=== PATIENT | male | born 1960 | race Caucasian/White ===

== ENCOUNTER 2020-07-27 09:32 | Inpatient (IN) | payer OTHER ==
[~2020-07-27] VITALS: Ht 177.8 cm; Wt 104.2 kg
--- NOTE | 2020-07-27 09:37 | NUR ---
PT BIB AMBULANCE [facility] FOR [facility]UD[facility] ONSET OF [place], CP RADIATING ACROSS CHEST TO BACK AND ARMS SINCE 10 PM LAST NIGHT. PT REPORTS PAIN A SQUEEZING PRESSURE. PT ON MONITOR AND EKG BEING DONE. PT DENIES CP NOW. PT HAD SERIAL TROPS DONE AT [facility] WITH SECOND AND THIRD TROP BEING POSITIVE.
--- NOTE | 2020-07-27 10:06 | NUR ---
REPORT TO ZAIDA Aguero RN.
--- NOTE | 2020-07-27 10:06 | NUR ---
PT [facility]. WAS SEEN THERE FOR CP WITH HANNA AND TRANSFERRED HERE FOR ELEVATED TROPS AFTER 3RD TROP. PT STATES 7/10 HEADACHE "RIGHT BEHIND MY EARS THAT WRAPS AROUND THE BACK OF MY HEAD". C/O BACK PAIN S/P 3YEARS AGO AFTER SLIPPING ON ICE AND BREAKING TAIL BONE. STATES RADIATES TO RIGHT LEG. STATES NEUROPATHY IN RIGHT FOOT. MD AT BEDSIDE. MONITORS CONNECTED.
--- NOTE | 2020-07-27 11:12 | NUR ---
DR MERA AT BEDSIDE UPDATING PT. ON PLAN OF CARE.
--- NOTE | 2020-07-27 11:17 | NUR ---
ELECTRONIC FIELD SERVICE ENGINEER AT BEDSIDE
[2020-07-27] MEDS ORDERED: METOPROLOL SUCCINATE 50 MG TAB.ER.24H PO ONE (11:30)
[2020-07-27] MEDS ORDERED: HEPARIN 25,000 UNITS/250ML PMX 250 ML IV PRN ×2 (11:30→16:30)
[2020-07-27] MEDS ORDERED: HEPARIN 5,000 UNITS/ML, 1ML IV ONE (11:30)
[2020-07-27] MEDS ORDERED: LOSARTAN 50MG TABLET PO ONE (11:30)
[2020-07-27] MEDS ORDERED: HEPARIN 5,000 UNITS/ML, 1ML IV PRN ×2 (11:30→16:30)
--- NOTE | 2020-07-27 11:30 | NUR ---
DR. MONTOYA AT BEDSIDE. DISCUSSED PLAN OF CARE WITH PT AND RN WHICH INCLUDED POSSIBLE ANGIOGRAM THIS AFTERNOON OR TOMORROW MORNING. PER DR. MONTOYA, OKAY TO START HEPARIN DRIP NOW. HE WILL CALL DOWN TO UPDATE ON WHETHER PT TO ANGIO TODAY OR TOMORROW. PER DR. MONTOYA, GIVE 50MG LOSARTAN PO AND 50MG METOPROLOL PO.
[2020-07-27] MEDS ORDERED: METOPROLOL TARTRATE 50 MG TAB ONE (11:35)
[2020-07-27] MEDS ORDERED: HEPARIN 25,000 UNITS/250ML PMX 250 ML ONE (11:35)
[2020-07-27] MEDS ORDERED: HEPARIN 5,000 UNITS/ML, 1ML ONE (11:35)
--- NOTE | 2020-07-27 11:57 | NUR ---
RAPID COVID COMPLETE
--- NOTE | 2020-07-27 11:57 | NUR ---
DR. MONTOYA AT BEDSIDE. UPDATED PT. ON PLAN. PT TO GO TO [facility] TOMORROW. PER DR. MONTOYA, PT NPO AT MIDNIGHT. OKAY TO EAT NOW.
--- NOTE | 2020-07-27 12:39 | NUR ---
REPORT GIVEN TO JOSE DANIEL BORJAS [phone]
[2020-07-27] MEDS ORDERED: FOLI0.4T2 PO (13:25)
[2020-07-27 13:54] VITALS: BP 163/92
[2020-07-27] MEDS ORDERED: ONDANSETRON ODT 4 MG PO PRN (15:30)
[2020-07-27] MEDS ORDERED: NITROGLYCERIN 0.4 MG BOTTLE (25 TABS) SL PRN (15:30)
[2020-07-27] MEDS ORDERED: morphine SULFATE 10 MG/ML, 1ML IVPush PRN (15:30)
[2020-07-27] MEDS ORDERED: ONDANSETRON 2MG/ML, 2ML IVPush PRN (15:30)
[2020-07-27] MEDS ORDERED: ACETAMINOPHEN 325 MG TABLET PO PRN (15:30)
[2020-07-27] MEDS ORDERED: NITROGLYCERIN 0.4 MG/SPRAY SL PRN (15:30)
[2020-07-27] MEDS ORDERED: hydrALAzine 20 MG/ML, 1ML ONE (17:19)
[2020-07-27] MEDS ORDERED: hydrALAzine 20 MG/ML, 1ML IV PRN (17:30)
[2020-07-27 18:20] VITALS: BP 156/72
[2020-07-27 20:00] VITALS: BP 156/89
[2020-07-27] MEDS ORDERED: TEMAZEPAM 15 MG CAPSULE PO PRN (21:30)
[2020-07-28 03:19] VITALS: BP 154/103
[2020-07-28] MEDS: ASPIRIN 81 MG TABLET EC PO SCH (06:20)
[2020-07-28 06:26] LABS: BASOPHILS % (AUTO) 1 % (0-1); EOSINOPHILS % (AUTO) 2 % (1-7); LYMPHOCYTES % (AUTO) 25 % (22-44); MEAN CORPUSCULAR HEMOGLOBIN 33.2 pg (27.5-34.5); MEAN CORPUSCULAR HGB CONC 34.6 g/dL (33.2-36.2); MEAN PLATELET VOLUME 7.8 fL (7.4-10.4); MONOCYTES % (AUTO) 6 % (2-9); NEUTROPHILS % (AUTO) 67 % (42-75); PLATELET COUNT 184 x10^3/uL (130-400); RED BLOOD COUNT 5.01 x10^6/uL (4.38-5.82); RED CELL DISTRIBUTION WIDTH 14.9 % (9.4-14.8)
[2020-07-28 06:30] LABS: ALANINE AMINOTRANSFERASE 42 U/L (12-78); ANION GAP 6 mmol/L (5-15); CALCIUM 9.3 mg/dL (8.5-10.1); CHLORIDE 110 mmol/L (98-107); CHOLESTEROL, TOTAL 262 mg/dL (140-239); CREATININE 1.01 mg/dL (0.7-1.3)
[2020-07-28 06:41] LABS: ALKALINE PHOSPHATASE 93 U/L (45-117); BILIRUBIN,TOTAL 0.6 mg/dL (0.2-1.0); CHOL/HDL RATIO 4.9; HDL CHOL % 20 % (26-37); HDL CHOLESTEROL (DIRECT) 53 mg/dL (40-60); LDL CHOLESTEROL,CALCULATED 157 mg/dL (54-169); TOTAL PROTEIN 7.2 g/dL (6.4-8.2); TRIGLYCERIDES 262 mg/dL (50-200); VLDL CHOLESTEROL 52 mg/dL (0-25)
[2020-07-28 06:45] LABS: MD NO
[2020-07-28 07:09] VITALS: BP 134/90
[2020-07-28] MEDS: LISINOPRIL 10 MG TABLET PO SCH (09:57)
[2020-07-28] MEDS: METOPROLOL TARTRATE 25 MG TAB PO SCH ×2 (09:57→17:34)
[2020-07-28] MEDS ORDERED: SODIUM CHLORIDE 0.9% 1,000 ML IV SCH (11:00)
[2020-07-28 12:12] VITALS: BP 131/82
[2020-07-28] MEDS ORDERED: FENTANYL PF 100 MCG/2ML ONE (13:36)
[2020-07-28] MEDS ORDERED: NITROGLYCERIN 5 MG/ML, 10ML ONE (13:36)
[2020-07-28] MEDS ORDERED: VERAPAMIL 2.5 MG/ML, 2ML ONE (13:36)
[2020-07-28] MEDS ORDERED: BIVALIRUDIN 250 MG ONE (13:36)
[2020-07-28] MEDS ORDERED: MIDAZOLAM 1 MG/ML, 5ML ONE (13:36)
[2020-07-28] MEDS ORDERED: LIDOCAINE 2%, 20ML ONE (13:37)
[2020-07-28] MEDS ORDERED: HEPARIN 1,000 UNITS/ML, 10ML ONE (13:37)
[2020-07-28] MEDS ORDERED: PRASUGREL 10 MG TABLET ONE (14:36)
[2020-07-28] MEDS: SODIUM CHLORIDE 0.9% 1,000 ML IV SCH ×2 (14:49→23:17)
[2020-07-28] MEDS ORDERED: BIVALIRUDIN 250 MG in SODIUM CHLORIDE 0.9% 50 ML IV SCH (15:00)
[2020-07-28] MEDS ORDERED: BUTALB/APAP/CAFFEINE 50MG/325MG/40MG PO PRN (16:00)
[2020-07-28 19:53] VITALS: BP 109/70
[2020-07-28] MEDS ORDERED: ATORVASTATIN 80 MG TABLET PO SCH (21:00)
[2020-07-29 00:30] VITALS: BP 101/61
[2020-07-29] MEDS: SODIUM CHLORIDE 0.9% 1,000 ML IV SCH (05:09)
[2020-07-29 05:50] LABS: BASOPHILS % (AUTO) 1 % (0-1); EOSINOPHILS % (AUTO) 2 % (1-7); LYMPHOCYTES % (AUTO) 22 % (22-44); MEAN CORPUSCULAR HEMOGLOBIN 33.5 pg (27.5-34.5); MEAN CORPUSCULAR HGB CONC 34.6 g/dL (33.2-36.2); MEAN PLATELET VOLUME 8.1 fL (7.4-10.4); MONOCYTES % (AUTO) 8 % (2-9); NEUTROPHILS % (AUTO) 68 % (42-75); PLATELET COUNT 164 x10^3/uL (130-400); RED BLOOD COUNT 4.53 x10^6/uL (4.38-5.82); RED CELL DISTRIBUTION WIDTH 14.6 % (9.4-14.8)
[2020-07-29 05:51] LABS: MD NO
[2020-07-29] MEDS: ASPIRIN 81 MG TABLET EC PO SCH (05:59)
[2020-07-29] MEDS: METOPROLOL TARTRATE 25 MG TAB PO SCH (05:59)
[2020-07-29 06:20] LABS: ALBUMIN 3.6 g/dL (3.4-5.0); ANION GAP 6 mmol/L (5-15); CHLORIDE 108 mmol/L (98-107)
[2020-07-29 06:25] LABS: ALANINE AMINOTRANSFERASE 31 U/L (12-78); ALKALINE PHOSPHATASE 80 U/L (45-117); BILIRUBIN,TOTAL 0.8 mg/dL (0.2-1.0); CREATININE 1.11 mg/dL (0.7-1.3); TOTAL PROTEIN 6.4 g/dL (6.4-8.2)
[2020-07-29] MEDS: LISINOPRIL 10 MG TABLET PO SCH (08:09)
[2020-07-29 08:22] VITALS: BP 109/69
[2020-07-29] MEDS ORDERED: PRASUGREL 10 MG TABLET PO SCH (09:00)
[2020-07-29] MEDS ORDERED: NITR0.4T28 SL (09:52)
[2020-07-29] MEDS ORDERED: METO25TA35 PO (09:52)
[2020-07-29] MEDS ORDERED: ASPI81TA45 PO (09:52)
[2020-07-29] MEDS ORDERED: LISI-167 PO (09:52)
[2020-07-29] MEDS ORDERED: PRAS10TA4 PO (09:52)
[2020-07-29] MEDS ORDERED: ATOR-2 PO (09:52)
== END 2020-07-29 11:17 | disposition home or self-care (01) | DRG 247 ==
LOC: ED 10:25 → EDIP 11:16 → 5SO 12:34 → DCLOUNGE 07-29 11:09
PROVIDERS: ADMIT Internal Medicine; ATTEND Internal Medicine
PROC: 027034Z Dilation of Coronary Artery, One Artery with Drug-eluting Intraluminal Device, Percutaneous Approach (ICD-10-PCS; principal; 2020-07-28)
PROC: 4A023N7 Measurement of Cardiac Sampling and Pressure, Left Heart, Percutaneous Approach (ICD-10-PCS; 2020-07-28)
PROC: B2111ZZ Fluoroscopy of Multiple Coronary Arteries using Low Osmolar Contrast (ICD-10-PCS; 2020-07-28)
PROC: B2151ZZ Fluoroscopy of Left Heart using Low Osmolar Contrast (ICD-10-PCS; 2020-07-28)
DX: I21.4 Non-ST elevation (NSTEMI) myocardial infarction (principal); I25.10 Atherosclerotic heart disease of native coronary artery without angina pectoris; M35.3 Polymyalgia rheumatica; I10 Essential (primary) hypertension; E78.5 Hyperlipidemia, unspecified; R73.9 Hyperglycemia, unspecified; I25.2 Old myocardial infarction; Z79.899 Other long term (current) drug therapy; Z87.891 Personal history of nicotine dependence
CPT/HCPCS: 36415; 70450; 80053; 80061; 83036; 84443; 84484; 85025; 85520; 87635; 93005; 93306; 93458; 93571; 99156; 99157; C1769; C1894; C9600; G0378; J0583; J1644; J2250; J3010; C1874; C1887; J0360; J7030; Q9967